=== PATIENT | female | born 1995 | race Caucasian/White ===

== ENCOUNTER 2020-05-06 14:27 | Inpatient (IN) | payer MEDICAID ==
[~2020-05-06] VITALS: Ht 154.9 cm; Wt 95.3 kg
[2020-05-06] MEDS ORDERED: ALBUTEROL SULF8.5 GM INH (14:38)
--- NOTE | 2020-05-06 15:22 | NUR ---
According to the suicide assessment the patient does not require 1:1 observation. Will provide a suicide resource flyer.
[2020-05-06 15:52] VITALS: BP 112/73; Ht 154.9 cm; Wt 95.3 kg
[2020-05-06 16:01] LABS: UDS - AMPHET NEGATIVE QUAL (NEGATIVE); UDS - BARB NEGATIVE QUAL (NEGATIVE); UDS - BENZO NEGATIVE QUAL (NEGATIVE); UDS - COCAINE NEGATIVE QUAL (NEGATIVE); UDS - OPIATE NEGATIVE QUAL (NEGATIVE); UDS - PCP NEGATIVE QUAL (NEGATIVE); UDS - THC NEGATIVE QUAL (NEGATIVE)
[2020-05-06 16:02] LABS: HEMATOCRIT 37.8 % (36.0-48.0); HEMOGLOBIN 12.5 g/dL (12-16); MCH 28.7 pg (26.0-34.0); MCHC 33.1 g/dL (31.0-37.0); MCV 86.7 fL (80.0-100.0); MEAN PLATELET VOLUME 9.4 fL (7.4-10.4); RBC 4.36 10x6/uL (4.00-5.40); RDW 13.3 % (11.5-14.5); WBC 12.7 10x3/uL (4.8-10.8)
[2020-05-07 07:10] VITALS: BP 110/63
--- NOTE | 2020-05-07 07:16 | NUR ---
RECEIVED PT SITTING UP IN BED. AWAKE. VSS. HRRR WITHOUT AUDIBLE MURMUR. BBS CLEAR. BS X 4. ABDOMEN SOFT/NON-DISTENDED. FUNDUS FIRM AT U/2. RUBRA LOCHIA MOD AMT. NO CLOTS EXPRESSED. NEG HOMANS' SIGN. PPP. MILD, NON-PITTING EDEMA NOTED TO BLE. PIV OF NS WITH PITOCIN INFUSING AT 125 ML/HR. SITE CLEAR. CONVERTED TO SALINE LOCK. PT OOB AND AMB TO BR. VOIDS LARGE AMT OF BLOOD-TINGED URINE. PERICARE DONE PER PT. PANTIES AND PAD ON. GOWN CHANGED. PT AMBULATES BACK TO BED. GREGOR ACTIVITY WELL. REQUESTS AND RECEIVES DR VAZQUEZ. SR UP X 2. CALL LIGHT IN REACH.
--- NOTE | 2020-05-07 08:30 | NUR ---
PT SITTING UP IN BED. VISITS WITH SO. DENIES C/O OR NEEDS.
--- NOTE | 2020-05-07 11:30 | NUR ---
PT OOB AND AMB TO BR. VOIDS 700 ML OF BLOOD-TINGED URINE. PERICARE DONE. PAD CHANGED. PT AMBULATES BACK TO BED. GREGOR ACTIVITY WELL.
--- NOTE | 2020-05-07 12:47 | NUR ---
DR LINO VISITS WITH PT. ORDER RECEIVED.
[2020-05-07 12:49] VITALS: BP 106/64
--- NOTE | 2020-05-07 12:49 | NUR ---
PT SITTING UP IN BED. VSS. FUNDUS FIRM AT U/2. RUBRA LOCHIA SMALL AMT. NO CLOTS NOTED. PERINEUM WITHOUT EDEMA. PT DENIES C/O OR NEEDS.
--- NOTE | 2020-05-07 14:00 | NUR ---
PT LYING TO RIGHT SIDE IN BED. EYES CLOSED. RESP NON-LABORED. SR UP X 2. CALL LIGHT IN REACH.
[2020-05-07 16:05] VITALS: BP 96/55
--- NOTE | 2020-05-07 16:11 | NUR ---
PT LYING TO RIGHT SIDE IN BED. WAKES UPON ENTERING ROOM. VSS. C/O GAS PAIN AND PAIN TO PERINEUM. MOTRIN 600 MG AND MYLICON 80 MG CHEW TAB GIVEN ORDERED. PT INSTRUCTED ON MEDS. VERBALIZES UNDERSTANDING.
--- NOTE | 2020-05-07 17:30 | NUR ---
PT UP TO SHOWER. LINENS PROVIDED. BED CHANGED OUT FOR REG BED. BED LOCKED AND PLACED IN LOW POSITION.
--- NOTE | 2020-05-07 18:15 | NUR ---
PT SITTING UP IN BED. FEEDING INFANT. STATES GREGOR SHOWER WELL. DENIES C/O OR NEEDS.
[2020-05-07 19:45] VITALS: BP 103/66
[2020-05-07 20:00] VITALS: BP 123/69
--- NOTE | 2020-05-07 20:00 | NUR ---
see assessment flow sheet for assessment, pt rec'd sitting up in bed, w/o signs of distress, pt teaching regarding pericare and . acknowledged understanding
--- NOTE | 2020-05-07 20:31 | NUR ---
PREVIOUS CHARTING DONE ON WRONG PT, VS INCORRECT.
--- NOTE | 2020-05-07 21:20 | NUR ---
to room for pt request of nipple shield, viewed latch w/o shield, noted pt nipples not inverted nor are they flat, but noted infant w poor front to back motion whild sucking, inserted gloved finger in mouth to encourage suck, after assistance latched to left breast well
--- NOTE | 2020-05-07 23:38 | NUR ---
room check sitting up in bed w sig other and in her arms. no needs voiced, denies pain or discomfort..
--- NOTE | 2020-05-08 01:21 | NUR ---
room check, pt sitting up attempting to get to latch, denies needs at this time, making good eye contact w/ no frustration noted, fob at bedside in supportive role
--- NOTE | 2020-05-08 03:30 | NUR ---
room check, pt resting well w/ eyes closed respirations even and unlabored. did not disturb
--- NOTE | 2020-05-08 04:25 | NUR ---
room check, pt alert and oriented, states is feeling some cramping, medicated per orders. no further needs voiced
--- NOTE | 2020-05-08 05:50 | NUR ---
to room to assist w/ . good latch to right breast
[2020-05-08 06:10] LABS: RAPID PLASMA REAGIN Non Reactive (Non Reactive)
[2020-05-08 07:29] LABS: BASOPHILS 0.2 % (0-2); EOSINOPHILS 2.4 % (0-7); HEMATOCRIT 32.6 % (36.0-48.0); HEMOGLOBIN 10.6 g/dL (12-16); IMMATURE GRANULOCYTES 0.3 % (0-5); LYMPHOCYTES 18.6 % (15-50); MCH 28.4 pg (26.0-34.0); MCHC 32.5 g/dL (31.0-37.0); MCV 87.4 fL (80.0-100.0); MONOCYTES 6.6 % (2-11); NEUTROPHILS 71.9 % (40-80); PLATELET COUNT 180 10x3/uL (130-400); RBC 3.73 10x6/uL (4.00-5.40); RDW 13.4 % (11.5-14.5); WBC 13.1 10x3/uL (4.8-10.8)
--- NOTE | 2020-05-08 07:30 | NUR ---
FOB TO UNIT DESK ASKING FOR PACIFIER FOR . THIS RN TO NURSERY, PACIFIER PROVIDED TO PATIENT. PT DENIES FURTHER NEEDS. HOLDING INFANT TO BREAST. SRUx2, CL IN REACH. WILL RETURN FOR SHIFT ASSESSMENT.
[2020-05-08 08:07] VITALS: BP 106/58
--- NOTE | 2020-05-08 08:07 | NUR ---
THIS RN TO ROOM FOR SHIFT ASSESSMENT. PT LYING IN BED ON RIGHT SIDE, LIGHTS IN ROOM DIM, AWAKENS THIS RN ENTERS ROOM. PT DENIES ANY PAIN, RATES PAIN 0/10. VSS, SHIFT ASSESSMNET COMPLETED, SEE FLOWSHEET FOR DOC. FF, ML, U/3. SMALL RUBRA LOCHIA, NO CLOTS. PT DENIES HEAVY LOCHIA OR CLOTS, S/S TO REPORT NOW AND POST D/C TO HOME DISCUSSED. PT VERBALIZES UNDERSTANDING. LACERATION S/S TO REPORT AND PERICARE DISCUSSED. PT PROVIDED WITH PERIBOTTLE AND BETADINE WITH INSTRUCTIONS ON CARE, UNDERSTANDING VERBALIZED. PT ALSO PROVIDED WITH PERIPADS PER REQUEST. MILD GENERALIZED LE EDEMA NOTED BILAT, NON-PITTING. POC DISCUSSED, WHITE BOARD UPDATED WITH NEXT AVAILABLE MED TIME. PT DENIES ANY FURTHER NEEDS. LIGHTS IN ROOM DIM FOR REST. SRUx2, CL IN REACH.
--- NOTE | 2020-05-08 09:15 | NUR ---
DR LINO TO ROOM FOR ROUNDING, DISCUSSING DISCHARGE TO HOME TODAY AND INSTRUCTIONS. ORDER RECEIVED FOR D/C TO HOME AFTER CBC IS REVIEWED.
--- NOTE | 2020-05-08 09:55 | NUR ---
THIS RN TO ROOM FOR PT CHECK. PT SITTING UP IN BED, ATTEMPTING TO LATCH TO BREAST, REQUESTS ASSISTANCE. THIS RN ASSISTS PT IN LATCHING INFANT TO BREAST. INFANT DROWSY, FALLS ASLEEP AT BREAST. PT STATES HE JUST HAD CIRCUMCISION COMPLETED, MAY BE TIRED FROM PROCEDURE. NURSERY RN NOTIFIED AND STATES MAY OFFER A BOTTLE OR WAIT ANOTHER HOUR AND TRY AGAIN. PT OPTS TO WAIT AND TRY AGAIN. PT DENIES FURTHER NEEDS. SRUx2, CL IN REACH. SIG OTHER AT BEDSIDE. WILL CONT TO MONITOR.
--- NOTE | 2020-05-08 11:55 | NUR ---
THIS RN TO ROOM FOR PT CHECK. PT SITTING UP IN BED, ATTEMPTING TO BREASTFEED . PT STATES SHE HAS CALLED NURSERY FOR ASSISTANCE WITH , AND THEY SHOULD BE ON THEIR WAY. FRESH ICE WATER GIVEN PER REQUEST, PT DENIES FURTHER NEEDS. PT INSTRUCTED TO CALL WHEN FINISHED FEEDING AND READY FOR DISCHARGE TEACHING. UNDERSTANDING VERBALIZED. SRUx2, CL IN REACH. WILL CONT TO MONITOR.
--- NOTE | 2020-05-08 12:30 | NUR ---
PT CALLS OUT BOX OFFICE MANAGER LIGHT STATING SHE IS READY FOR DISCHARGE PAPERS. THIS RN TO ROOM. DISCHARGE INSTRUCTIONS GIVEN. PT VERBALIZES UNDERSTANDING AND DENIES QUESTIONS, SIGNS CHART COPY OF INSTRUCTIONS. PT INSTRUCTED THAT AFTER NURSERY COMPLETES INFANT DISCHARGE TEACHING AND REMOVES SECURITY BAND, INFANT MAY BE BUCKLED INTO CARSEAT AND CAR PULLED TO FRONT ENTRANCE BY FOB. THIS RN WILL TAKE PT OUT IN W/C FOR D/C TO HOME. UNDERSTANDING VERBALIZED. [employer] CART PROVIDED TO FOB TO TRANSFER PERSONAL BELONGINGS TO VEHICLE.
--- NOTE | 2020-05-08 14:00 | NUR ---
PT STATES SHE IS READY FOR W/C OUT TO PRIVATE VEHICLE. THIS RN TO ROOM. PT STATES INFANT HAD BM AND SHE WILL NEED TO CHANGE HIM, WILL CALL WHEN READY.
--- NOTE | 2020-05-08 15:10 | NUR ---
PT CALLS OUT CEILING INSTALLER LIGHT STATING THEY ARE READY FOR W/C OUT. THIS RN TO ROOM. PT TAKEN OUT VIA W/C TO AWAITING PRIVATE VEHICLE, ACCOMPANIED BY FOB CARRYING BUCKLED IN CARSEAT. PT BELONGINGS AND INSTRUCTIONS IN POSSESSION. FOB TO DRIVE HOME.
== END 2020-05-08 15:10 | disposition home or self-care (01) | DRG 807 ==
LOC: D.LDO 14:27 → D.LD 14:32
PROVIDERS: ADMIT Student in an Organized Health Care Education/Training Program; ATTEND Student in an Organized Health Care Education/Training Program
PROC: 10E0XZZ Delivery of Products of Conception, External Approach (ICD-10-PCS; principal; 2020-05-07)
PROC: 0KQM0ZZ Repair Perineum Muscle, Open Approach (ICD-10-PCS; 2020-05-07)
DX: O70.1 Second degree perineal laceration during delivery (principal); Z37.0 Single live birth; Z3A.39 39 weeks gestation of pregnancy